=== PATIENT | male | born 1940 | race Caucasian/White ===

== ENCOUNTER 2020-09-17 00:58 | Observation (INO) ==
--- NOTE | 2020-09-17 02:22 | DR.COUGH ---
HPI Time Seen Time Seen by Provider: 09/17/20 02:21 PCP Primary Care Physician: DR.TERESA BAILEY HPI Comment HPI Comment: 80 yo cm w/ pmh systolic HF (ef 25), AICd placement, dementia presents w/ 3 week hx of worsening confusion / disorientation. Multiple falls over the past week, unwitness, ? head strike. Also notes non productive cough. + covid exposure to daughter who tested + 3 weeks ago. + nausea w/o vomiting, + loose stools. No focal numbness/ weakness, CP, SOB, vomiting, urinary sx's. Complaint Chief Complaint:: "CONFUSED X1 WEEK, FELL 4 TIMES TODAY, COUGH, SOB" COVID-19 Coronavirus risk:travel/contact w/high risk person: No Has patient experienced Coronavirus symptoms: Yes Coronavirus symptoms experienced: Coughing and Shortness of Breath Source History Provided: Family Member Mode of Arrival Mode of Arrival: Wheelchair Timing Onset of Chief Complaint: 09/10/20 PMH PMH Past Medical History: Yes Past Medical History: Dyslipidemia Past Medical History Comment: PM WITH DEFIB, SPINAL STIMULATOR, CABG Past Surgical History: Yes Surgical History: CABG/Valve Surgery Past Surgical History Comment: BACK SURGERY Family History History of Family Medical Conditions: Yes Family Medical History: Diabetes Mellitus, Heart Failure and Sudden Cardiac Social History Does patient currently use any type of tobacco product: No Type of Tobacco Use: None Travel Risk Coronavirus risk:travel/contact w/high risk person: No Has patient experienced Coronavirus symptoms: Yes Coronavirus symptoms experienced: Coughing and Shortness of Breath Infectious screening In the last 2 months have you had wt loss of >10#?: NO Have you had fever, night sweats or hemotysis?: No Have you traveled outside the country in the last 6 months?: No Isolation: Standard ROS Review of Systems Unable to Obtain Due To: Altered mental status PE Vitals Vitals: Temperature 36.6 C Pulse Rate 109 Respiratory Rate 22 Blood Pressure 92/65 O2 Sat by Pulse Oximetry 92 General Limitations: Altered Mental Status General Appearance: Alert and Other (a/o x 2) Head Head Exam: Normal Inspection Eyes Eye exam: Normal Appearance ENT ENT Exam: Normal Exam External Ear Exam: Normal External Inspection TM/Canal Exam: Bilateral: Normal Nose Exam: Normal Nose Exam Nasal Speculum Exam: Bilateral: Normal Mouth Exam: Normal Inspection Teeth Exam: Normal Inspection Throat Exam: Normal Inspection Neck Neck Exam: Normal Inspection Chest Chest Inspection: Normal Inspection Respiratory Respiratory Exam: Normal Lung Sounds Bilat Cardiovascular Cardiovascular Exam: Regular Rate and Normal Rhythm Abdominal Exam Abdominal Exam: Normal Inspection, Normal Bowel Sounds and Soft Extremities Extremities Exam: Normal Inspection Back Back Exam: Normal Inspection Neurologic Neurological Exam: Alert and CN II-XII Intact; negative Oriented X3 (disoriented to place) and Motor Sensory Deficit Psychiatric Psychiatric Exam: Normal Affect and Normal Mood Skin Skin Exam: Warm, Dry, Intact and Normal Color MDM Additional Information Additional Information Obtained From: Old Records and Family Differential Diagnosis Differential Diagnosis: Pneumonia, URI and Other (uti, cva) COURSE Treatment Treatment: 80 yo m w/ prev hx of dementia presents w/ AMS> CT head negative. Non focal neuro exam. Covid negative. No hypoxia. BMP w/ evidence of maurizio (baseline cre 1.9). IVF's given. UA pending. d/w Dr Parker whom agrees to admit. ROR Labs Reviewed Laboratory Results Reviewed?: Yes Result Diagrams: 09/17/20 02:38 09/17/20 02:38 Laboratory: WBC 12.4 X10^3/uL (3.6-10.0) H 09/17/20 02:38 RBC 4.59 X10^6/uL (4.7-6.0) L 09/17/20 02:38 Hgb 13.1 g/dL (13.5-18.0) L 09/17/20 02:38 Hct 39.8 % (42.0-54.0) L 09/17/20 02:38 MCV 86.6 fL (80.0-100.0) 09/17/20 02:38 MCH 28.6 pg (27.0-34.0) 09/17/20 02:38 MCHC 33.0 g/dL (33.0-35.0) 09/17/20 02:38 RDW 13.9 % (11.6-16.5) 09/17/20 02:38 Plt Count 219 X10^3/uL (150.0-450.0) 09/17/20 02:38 MPV 7.6 fL (7.4-11.0) 09/17/20 02:38 Neut % (Auto) 80.6 % (42.0-75.0) H 09/17/20 02:38 Lymph % (Auto) 12.2 % (21.0-51.0) L 09/17/20 02:38 [place] % (Auto) 6.6 % (0.0-13.0) 09/17/20 02:38 Eos % (Auto) 0.3 % (0.9-2.9) L 09/17/20 02:38 Baso % (Auto) 0.3 % (0.2-1.0) 09/17/20 02:38 Neut # (Auto) 10.0 x10^3/uL (2.2-4.8) H 09/17/20 02:38 Lymph # (Auto) 1.5 X10^3/uL (1.3-2.9) 09/17/20 02:38 [place] # (Auto) 0.8 x10^3/uL (0.3-0.8) 09/17/20 02:38 Eos # (Auto) 0.0 x10^3/uL (0.0-0.2) 09/17/20 02:38 Baso # (Auto) 0.0 X10^3/uL (0.0-0.1) 09/17/20 02:38 Absolute Nucleated RBC 0.0 /100WBC 09/17/20 02:38 Sodium 138 mmol/L (136-145) 09/17/20 02:38 Corrected Sodium 139 mmol/L (136-145) 09/17/20 02:38 Potassium 4.9 mmol/L (3.5-5.1) 09/17/20 02:38 Chloride 101 mmol/L (98-107) 09/17/20 02:38 Carbon Dioxide 24.0 mmol/L (21-32) 09/17/20 02:38 BUN 32 mg/dL (7-18) H 09/17/20 02:38 Creatinine 2.62 mg/dL (0.70-1.30) H 09/17/20 02:38 Est GFR (MDRD) Af Amer 31 (>60) L 09/17/20 02:38 Est GFR (MDRD) Non-Af 25 (>60) L 09/17/20 02:38 Glucose 146 mg/dL (65-99) H 09/17/20 02:38 Calcium 8.8 mg/dL (8.5-10.1) 09/17/20 02:38 Corrected Calcium TNP 09/17/20 02:38 Ferritin 176 ng/mL (26-388) 09/17/20 02:38 Total Bilirubin 1.00 mg/dL (0.2-1.0) 09/17/20 02:38 AST 47 Units/L (15-37) H 09/17/20 02:38 ALT 26 Units/L (12-78) 09/17/20 02:38 Alkaline Phosphatase 69 Units/L (46-116) 09/17/20 02:38 Lactate Dehydrogenase 385 Units/L (85-227) H 09/17/20 02:38 Troponin I 0.04 ng/mL (0-1.5) 09/17/20 02:38 Total Protein 6.6 g/dL (6.4-8.2) 09/17/20 02:38 Albumin 3.4 g/dL (3.4-5.0) 09/17/20 02:38 Globulin 3.2 g/dL (2.5-4.5) 09/17/20 02:38 Albumin/Globulin Ratio 1.1 Ratio (1.1-2.1) 09/17/20 02:38 SARS CoV-2 RNA Rapid MIO Negative (NEGATIVE) 09/17/20 04:12 EKG Rate: 98 Rhythm: Paced Block: IVCD Hypertrophy: LVH ST: Nonsp Opioid Opioid Risk Tool Age (Shaun box if 16-45): No History of Preadolescent Sexual Abuse: No Total: 0 Total Score Risk Category: Low Risk Copyright: Dhaval CORTEZ predicting aberrant behaviors Diagnosis Discharge Problem: MAURIZIO (acute kidney injury) AMS (altered mental status) Qualifiers: Altered mental status type: delirium Qualified Code(s): R41.0 - Disorientation, unspecified Instructions Forms: Patient Portal Social Distancing
[2020-09-17 02:49] LABS: BASOPHILS % (AUTO) 0.3 % (0.2-1.0); EOSINOPHILS % (AUTO) 0.3 % (0.9-2.9); HEMATOCRIT 39.8 % (42.0-54.0); HEMOGLOBIN 13.1 g/dL (13.5-18.0); LYMPHOCYTES # (AUTO) 1.5 X10^3/uL (1.3-2.9); LYMPHOCYTES % (AUTO) 12.2 % (21.0-51.0); MEAN CORPUSCULAR HEMOGLOBIN 28.6 pg (27.0-34.0); MEAN CORPUSCULAR VOLUME 86.6 fL (80.0-100.0); MEAN PLATELET VOLUME 7.6 fL (7.4-11.0); MONOCYTES # (AUTO) 0.8 x10^3/uL (0.3-0.8); MONOCYTES % (AUTO) 6.6 % (0.0-13.0); NEUTROPHILS % (AUTO) 80.6 % (42.0-75.0); PLATELET COUNT 219 X10^3/uL (150.0-450.0); RED BLOOD COUNT 4.59 X10^6/uL (4.7-6.0); RED CELL DISTRIBUTION WIDTH 13.9 % (11.6-16.5); WHITE BLOOD COUNT 12.4 X10^3/uL (3.6-10.0)
[2020-09-17 03:03] LABS: ALANINE AMINOTRANSFERASE 26 Units/L (12-78); ALBUMIN 3.4 g/dL (3.4-5.0); ALKALINE PHOSPHATASE 69 Units/L (46-116); ASPARTATE AMINO TRANSFERASE 47 Units/L (15-37); BLOOD UREA NITROGEN 32 mg/dL (7-18); CALCIUM 8.8 mg/dL (8.5-10.1); CHLORIDE 101 mmol/L (98-107); COR NA(FOR HYPERGLY) 139 mmol/L (136-145); CREATININE 2.62 mg/dL (0.70-1.30); LACTATE DEHYDROGENASE 385 Units/L (85-227); SODIUM 138 mmol/L (136-145); TOTAL PROTEIN 6.6 g/dL (6.4-8.2); TROPONIN I 0.04 ng/mL (0-1.5); eGFR NON BLACK RACES 25 (>60)
--- NOTE | 2020-09-17 03:52 | CT ---
History: weakness confusion coughing sob Relevant Clinical InformationExam :BRAIN W/O CONTechnique: Thin section axial ct images of the brain were obtained from the foramen magnum to the vertex without contrast. Sagittal and coronal reconstructions were also performed.Comparison: NoneFindings:The ventricles are within normal limits in size. No midline shift, mass effect or extra-axial fluid collections. No evidence of acute hemorrhage or acute macroinfarction. Mild cortical atrophy compatible with patient's age. Decreased attenuation in the periventricular and subcortical white matter consistent with microvascular ischemic white matter changes.The visualized paranasal sinuses and mastoids are unremarkable. The calvarium is intact.Impression:Mild cortical atrophy with microvascular ischemic white matter changes.No acute intracranial pathology.Electronically signed by: Julio César Cornelius (Sep 17, 2020 03:50:17)
--- NOTE | 2020-09-17 05:21 | RAD ---
HISTORYCough weaknessSTUDYAP chestCOMPARISONNoneFINDINGSHeart size upper normal, with pacemaker and sternal wires. The lungs are clear. There is suggestion of hiatal hernia. Retained metallic foreign fragments are projected over the periphery of the right midlung.IMPRESSIONNo acute disease. Upper normal heart size. Postsurgical and posttraumatic findings. Suspect hiatal hernia.Electronically signed by: JOSSY MOSS (Sep 17, 2020 05:19:57)
--- NOTE | 2020-09-17 05:35 | RAD ---
HISTORYright knee pain Relevant Clinical InformationSTUDYKNEE RIGHTCOMPARISONNoneFINDINGSNo evidence for acute cortical disruption or dislocation. Moderate degenerative osteoarthritic changes right knee with narrowing of the medial joint compartment. Chondrocalcinosis present. No joint effusion.IMPRESSIONModerate degenerative osteoarthritic changes involving the right knee with narrowing of the medial joint compartment.No acute bony abnormalityElectronically signed by: Julio César Cornelius (Sep 17, 2020 05:34:25)
[2020-09-17] MEDS ORDERED: NS 1000 ML 1,000 ML IV ONE (05:47)
[2020-09-17] MEDS ORDERED: NS 1000 ML 1,000 ML ONE (05:48)
[2020-09-17] MEDS: NS 1000 ML 1,000 ML IV SCH ×2 (07:30→15:20)
--- NOTE | 2020-09-17 13:24 | DR.H&P ---
H&P History & Physical for Day of: H&P Date: 09/17/20 Chief Complaint Chief Complaint: Confusion Weakness Allergies Allergies Allergy/AdvReac Type Severity Reaction Status Date / Time No Known Drug Allergies Allergy Verified 09/17/20 02:29 History of Present Illness History of Present Illness: Pt is a 80 year old male with past medical history of HFrEF(25%), AICD placement, Dementia presenting after having worsening confusion for the past 3 weeks. It was also reported that he was having frequent falls throughout the week. Labs/imaging: Wbc 12.4, Hgb 13.1, Plt 219, Na 138, K 4.9, Cr 2.62, Glucose 146, Troponin negative, COVID negative. CT head: Mild cortical atrophy with microvascular ischemic white matter changes. No acute intracranial pathology. CXR: No acute disease. Upper normal heart size. Postsurgical and posttraumatic findings. Suspect hiatal hernia. Right Knee XR: Moderate degenerative osteoarthritic changes involving the right knee with narr owing of the medial joint compartment. No acute bony abnormality. He was found to be dehydrated in the ED and started on IVF. Urinalysis has not yet been collected, will have nurse get sample for evaluation. He does have mild leukocytosis, will start on Rocephin after urine collected. Continue IVF for acute renal failure. Will continue to monitor and follow up labs/imaging in the morning. Past Medical History Past Medical History: Dementia, Dyslipidemia and Hypertension Past Surgical History Surgical History: CABG/Valve Surgery Family History Family Medical History: Diabetes Mellitus, Heart Failure and Sudden Cardiac Social History Does patient currently use any type of tobacco product: No Type of Tobacco Use: None Medications Home Medications: No Known Drug Allergies Allergy (Verified 09/17/20 02:29) CONTINUE taking the following medications buspirone 5 mg PO HS 09/17/20 [History] carvedilol [Coreg] 6.25 mg PO BID 09/17/20 [History] donepezil 10 mg PO DAILY 09/17/20 [History] furosemide 40 mg PO QAM 09/17/20 [History] gabapentin 300 mg PO BID 09/17/20 [History] levothyroxine 25 mcg PO DAILY 09/17/20 [History] losartan 25 mg PO DAILY 09/17/20 [History] memantine 10 mg PO BID 09/17/20 [History] montelukast 10 mg PO DAILY 09/17/20 [History] pantoprazole 40 mg PO BID 09/17/20 [History] simvastatin [Zocor] 20 mg PO QHS 09/17/20 [History] tamsulosin [Flomax] 0.4 mg PO QHS 09/17/20 [History] tramadol 50 mg PO TID PRN 09/17/20 [History] Labs Result Diagrams: 09/17/20 02:38 09/17/20 02:38 Labs: Laboratory WBC 12.4 X10^3/uL (3.6-10.0) H 09/17/20 02:38 RBC 4.59 X10^6/uL (4.7-6.0) L 09/17/20 02:38 Hgb 13.1 g/dL (13.5-18.0) L 09/17/20 02:38 Hct 39.8 % (42.0-54.0) L 09/17/20 02:38 MCV 86.6 fL (80.0-100.0) 09/17/20 02:38 MCH 28.6 pg (27.0-34.0) 09/17/20 02:38 MCHC 33.0 g/dL (33.0-35.0) 09/17/20 02:38 RDW 13.9 % (11.6-16.5) 09/17/20 02:38 Plt Count 219 X10^3/uL (150.0-450.0) 09/17/20 02:38 MPV 7.6 fL (7.4-11.0) 09/17/20 02:38 Neut % (Auto) 80.6 % (42.0-75.0) H 09/17/20 02:38 Lymph % (Auto) 12.2 % (21.0-51.0) L 09/17/20 02:38 [place] % (Auto) 6.6 % (0.0-13.0) 09/17/20 02:38 Eos % (Auto) 0.3 % (0.9-2.9) L 09/17/20 02:38 Baso % (Auto) 0.3 % (0.2-1.0) 09/17/20 02:38 Neut # (Auto) 10.0 x10^3/uL (2.2-4.8) H 09/17/20 02:38 Lymph # (Auto) 1.5 X10^3/uL (1.3-2.9) 09/17/20 02:38 [place] # (Auto) 0.8 x10^3/uL (0.3-0.8) 09/17/20 02:38 Eos # (Auto) 0.0 x10^3/uL (0.0-0.2) 09/17/20 02:38 Baso # (Auto) 0.0 X10^3/uL (0.0-0.1) 09/17/20 02:38 Absolute Nucleated RBC 0.0 /100WBC 09/17/20 02:38 Sodium 138 mmol/L (136-145) 09/17/20 02:38 Corrected Sodium 139 mmol/L (136-145) 09/17/20 02:38 Potassium 4.9 mmol/L (3.5-5.1) 09/17/20 02:38 Chloride 101 mmol/L (98-107) 09/17/20 02:38 Carbon Dioxide 24.0 mmol/L (21-32) 09/17/20 02:38 BUN 32 mg/dL (7-18) H 09/17/20 02:38 Creatinine 2.62 mg/dL (0.70-1.30) H 09/17/20 02:38 Est GFR (MDRD) Af Amer 31 (>60) L 09/17/20 02:38 Est GFR (MDRD) Non-Af 25 (>60) L 09/17/20 02:38 Glucose 146 mg/dL (65-99) H 09/17/20 02:38 Calcium 8.8 mg/dL (8.5-10.1) 09/17/20 02:38 Corrected Calcium TNP 09/17/20 02:38 Ferritin 176 ng/mL (26-388) 09/17/20 02:38 Total Bilirubin 1.00 mg/dL (0.2-1.0) 09/17/20 02:38 AST 47 Units/L (15-37) H 09/17/20 02:38 ALT 26 Units/L (12-78) 09/17/20 02:38 Alkaline Phosphatase 69 Units/L (46-116) 09/17/20 02:38 Lactate Dehydrogenase 385 Units/L (85-227) H 09/17/20 02:38 Troponin I 0.04 ng/mL (0-1.5) 09/17/20 02:38 Total Protein 6.6 g/dL (6.4-8.2) 09/17/20 02:38 Albumin 3.4 g/dL (3.4-5.0) 09/17/20 02:38 Globulin 3.2 g/dL (2.5-4.5) 09/17/20 02:38 Albumin/Globulin Ratio 1.1 Ratio (1.1-2.1) 09/17/20 02:38 SARS CoV-2 RNA Rapid MIO Negative (NEGATIVE) 09/17/20 04:12 Review of Systems Constitutional: Weakness Eyes: No Symptoms Reported ENT: No Symptoms Reported Respiratory: No Symptoms Reported Cardiovascular: No Symptoms Reported Gastrointestinal: No Symptoms Reported Genitourinary: No Symptoms Reported Musculoskeletal: No Symptoms Reported Skin: No Symptoms Reported Neurological: Confusion Physical Exam Vital Signs: Temperature 97.8 F Pulse Rate [Right Brachial] 84 Pulse Rate 109 Respiratory Rate 20 Blood Pressure [Right Arm] 152/64 Blood Pressure 92/65 O2 Sat by Pulse Oximetry 98 Oriented: Person Eyes: Normal Ear: Normal Nose: Normal Throat: Normal Respiratory: Clear Throughout Cardiovascular: Normal : Normal Auscultation: Bowel Sounds: Normal Palpation: Normal Tenderness: Normal Skin: Normal Musculoskeletal: Normal Psychiatric: Normal Mood Description: Calm and Appropriate Affect: Normal Speech Pattern: Clear and Appropriate Assessment/Plan (1) Acute renal failure: Status: Acute Plan: Due to dehydration. Continue IVF (2) AMS (altered mental status): Qualifiers: Altered mental status type: delirium Qualified Code(s): R41.0 - Disorientation, unspecified Status: Acute Plan: order UA. Review H&P Reviewed: Yes Patient was examined?: Yes
[2020-09-17] MEDS: ROCEPHIN VIAL 1 GRAM 1 G in NS 100 ML IV + SPIKE MINIBAG* 100 ML IV SCH (15:20)
[2020-09-17 19:42] LABS: BILIRUBIN,URINE NEGATIVE (NEGATIVE); BLOOD/HEMOGLOBIN,URINE NEGATIVE (NEGATIVE); GLUCOSE, URINE NEGATIVE (NEGATIVE); KETONES,URINE NEGATIVE (NEGATIVE); LEUKOCYTE ESTERASE ,URINE NEGATIVE (NEGATIVE); NITRITES,URINE NEGATIVE (NEGATIVE); PROTEIN,URINE NEGATIVE (NEGATIVE); UROBILINOGEN,URINE NORMAL (NORMAL)
[2020-09-17 19:43] LABS: APPEARANCE,URINE CLEAR (CLEAR); COLOR,URINE YELLOW (YELLOW)
[2020-09-18] MEDS: NS 1000 ML 1,000 ML IV SCH ×3 (00:12→19:19)
[2020-09-18 06:53] LABS: BASOPHILS % (AUTO) 0.4 % (0.2-1.0); EOSINOPHILS # (AUTO) 0.2 x10^3/uL (0.0-0.2); EOSINOPHILS % (AUTO) 3.2 % (0.9-2.9); HEMATOCRIT 31.4 % (42.0-54.0); HEMOGLOBIN 10.5 g/dL (13.5-18.0); LYMPHOCYTES # (AUTO) 1.5 X10^3/uL (1.3-2.9); MEAN CORPUSCULAR HEMOGLOBIN 29.4 pg (27.0-34.0); MEAN CORPUSCULAR HGB CONC 33.6 g/dL (33.0-35.0); MEAN CORPUSCULAR VOLUME 87.3 fL (80.0-100.0); MEAN PLATELET VOLUME 8.2 fL (7.4-11.0); MONOCYTES # (AUTO) 0.6 x10^3/uL (0.3-0.8); MONOCYTES % (AUTO) 8.3 % (0.0-13.0); NEUTROPHILS % (AUTO) 68.1 % (42.0-75.0); PLATELET COUNT 174 X10^3/uL (150.0-450.0); RED BLOOD COUNT 3.59 X10^6/uL (4.7-6.0); RED CELL DISTRIBUTION WIDTH 13.7 % (11.6-16.5); WHITE BLOOD COUNT 7.4 X10^3/uL (3.6-10.0)
[2020-09-18 07:02] LABS: ALANINE AMINOTRANSFERASE 25 Units/L (12-78); ALBUMIN 2.5 g/dL (3.4-5.0); ALKALINE PHOSPHATASE 46 Units/L (46-116); ASPARTATE AMINO TRANSFERASE 40 Units/L (15-37); BLOOD UREA NITROGEN 29 mg/dL (7-18); CALCIUM 8.2 mg/dL (8.5-10.1); CARBON DIOXIDE 23.5 mmol/L (21-32); CHLORIDE 111 mmol/L (98-107); COR CA(FOR HYPOALB) 9.4 mg/dL (8.5-10.1); CREATININE 2.23 mg/dL (0.70-1.30); SODIUM 143 mmol/L (136-145); TOTAL PROTEIN 5.2 g/dL (6.4-8.2); eGFR NON BLACK RACES 30 (>60)
[2020-09-18] MEDS: ROCEPHIN VIAL 1 GRAM 1 G in NS 100 ML IV + SPIKE MINIBAG* 100 ML IV SCH (08:26)
[2020-09-18 08:28] VITALS: BMI 28.6
--- NOTE | 2020-09-18 13:19 | PCM.PROG ---
Progress Note Progress Note for Day of Date of Exam: 09/18/20 Subjective Subjective: Pt is a 80 year old male with past medical history of HFrEF(25%), AICD placement, Dementia admitted for dehydration, cystitis, and altered mental status. This morning patient is resting in bed, no acute events overnight. Labs/imaging: Wbc 7.4, Hgb 10.5, Plt 174, Na 143, K 4.6, Cr 2.23, Glucose 95. COVID negative. Urinalysis was not consistent with infection, however could not be ruled out due to patient receiving antibiotics Rocephin before urine sample could be collected. His mild leukocytosis has improved with antibiotics. Continue IVF for acute renal failure. Will continue to monitor and follow up labs/imaging in the morning. Past Medical Family Social History Past Med/Fam/Surg Hx: No changes since H&P Allergies: Allergies No Known Drug Allergies Allergy (Verified 09/17/20 02:29) Review of Systems ROS: No change since H&P Vital Signs and I&O's Vital Signs: Temperature 97.8 F Pulse Rate [Right Brachial] 81 Pulse Rate 109 Respiratory Rate 18 Blood Pressure [Right Arm] 123/79 Blood Pressure 92/65 O2 Sat by Pulse Oximetry 95 Intake and Output: Intake & Output 09/15/20 09/16/20 09/17/20 09/18/20 23:59 23:59 23:59 23:59 Intake Total 1460 / 1460 1000 / 1000 Output Total 200 / 200 350 / 350 Balance 1260 / 1260 650 / 650 Physical Exam Oriented: Person Eyes: Normal Ear: Normal Nose: Normal Throat: Normal Respiratory: Normal Cardiovascular: Normal : Normal Auscultation: Bowel Sounds: Normal Tenderness: Normal Skin: Normal Musculoskeletal: Normal Psychiatric: Normal Mood Description: Calm and Appropriate Affect: Normal Speech Pattern: Clear and Appropriate Laboratory and Diagnostics Result Diagrams: 09/18/20 06:30 09/18/20 06:30 Labs: Laboratory WBC 7.4 X10^3/uL (3.6-10.0) 09/18/20 06:30 RBC 3.59 X10^6/uL (4.7-6.0) L 09/18/20 06:30 Hgb 10.5 g/dL (13.5-18.0) L D 09/18/20 06:30 Hct 31.4 % (42.0-54.0) L 09/18/20 06:30 MCV 87.3 fL (80.0-100.0) 09/18/20 06:30 MCH 29.4 pg (27.0-34.0) 09/18/20 06:30 MCHC 33.6 g/dL (33.0-35.0) 09/18/20 06:30 RDW 13.7 % (11.6-16.5) 09/18/20 06:30 Plt Count 174 X10^3/uL (150.0-450.0) 09/18/20 06:30 MPV 8.2 fL (7.4-11.0) 09/18/20 06:30 Neut % (Auto) 68.1 % (42.0-75.0) 09/18/20 06:30 Lymph % (Auto) 20.0 % (21.0-51.0) L 09/18/20 06:30 [place] % (Auto) 8.3 % (0.0-13.0) 09/18/20 06:30 Eos % (Auto) 3.2 % (0.9-2.9) H 09/18/20 06:30 Baso % (Auto) 0.4 % (0.2-1.0) 09/18/20 06:30 Neut # (Auto) 5.0 x10^3/uL (2.2-4.8) H 09/18/20 06:30 Lymph # (Auto) 1.5 X10^3/uL (1.3-2.9) 09/18/20 06:30 [place] # (Auto) 0.6 x10^3/uL (0.3-0.8) 09/18/20 06:30 Eos # (Auto) 0.2 x10^3/uL (0.0-0.2) 09/18/20 06:30 Baso # (Auto) 0.0 X10^3/uL (0.0-0.1) 09/18/20 06:30 Absolute Nucleated RBC 0.0 /100WBC 09/18/20 06:30 Sodium 143 mmol/L (136-145) 09/18/20 06:30 Corrected Sodium TNP 09/18/20 06:30 Potassium 4.6 mmol/L (3.5-5.1) 09/18/20 06:30 Chloride 111 mmol/L (98-107) H 09/18/20 06:30 Carbon Dioxide 23.5 mmol/L (21-32) 09/18/20 06:30 BUN 29 mg/dL (7-18) H 09/18/20 06:30 Creatinine 2.23 mg/dL (0.70-1.30) H 09/18/20 06:30 Est GFR (MDRD) Af Amer 37 (>60) L 09/18/20 06:30 Est GFR (MDRD) Non-Af 30 (>60) L 09/18/20 06:30 Glucose 95 mg/dL (65-99) 09/18/20 06:30 Calcium 8.2 mg/dL (8.5-10.1) L 09/18/20 06:30 Corrected Calcium 9.4 mg/dL (8.5-10.1) 09/18/20 06:30 Ferritin 176 ng/mL (26-388) 09/17/20 02:38 Total Bilirubin 0.60 mg/dL (0.2-1.0) 09/18/20 06:30 AST 40 Units/L (15-37) H 09/18/20 06:30 ALT 25 Units/L (12-78) 09/18/20 06:30 Alkaline Phosphatase 46 Units/L (46-116) 09/18/20 06:30 Lactate Dehydrogenase 385 Units/L (85-227) H 09/17/20 02:38 Troponin I 0.04 ng/mL (0-1.5) 09/17/20 02:38 Total Protein 5.2 g/dL (6.4-8.2) L 09/18/20 06:30 Albumin 2.5 g/dL (3.4-5.0) L 09/18/20 06:30 Globulin 2.7 g/dL (2.5-4.5) 09/18/20 06:30 Albumin/Globulin Ratio 0.9 Ratio (1.1-2.1) L 09/18/20 06:30 Specimen Type Clean catch urine 09/17/20 19:15 Urine Color Yellow (YELLOW) 09/17/20 19:15 Urine Appearance Clear (CLEAR) 09/17/20 19:15 Urine pH 6.0 (5.0 - 8.0) 09/17/20 19:15 Ur Specific [place] 1.020 (1.000-1.030) 09/17/20 19:15 Urine Protein Negative (NEGATIVE) 09/17/20 19:15 Urine Glucose (UA) Negative (NEGATIVE) 09/17/20 19:15 Urine Ketones Negative (NEGATIVE) 09/17/20 19:15 Urine Occult Blood Negative (NEGATIVE) 09/17/20 19:15 Urine Nitrite Negative (NEGATIVE) 09/17/20 19:15 Urine Bilirubin Negative (NEGATIVE) 09/17/20 19:15 Urine Urobilinogen Normal (NORMAL) 09/17/20 19:15 Ur Leukocyte Esterase Negative (NEGATIVE) 09/17/20 19:15 SARS CoV-2 RNA Rapid MIO Negative (NEGATIVE) 09/17/20 04:12 Plan (1) Acute renal failure: Status: Acute Plan: Due to dehydration. Continue IVF (2) AMS (altered mental status): Status: Acute Qualifiers: Altered mental status type: delirium Qualified Code(s): R41.0 - Disorientation, unspecified Plan: order UA. (3) Cystitis: Status: Acute Plan: continue Rocephin
[2020-09-19] MEDS: NS 1000 ML 1,000 ML IV SCH ×3 (00:51→14:28)
[2020-09-19 07:05] LABS: ALANINE AMINOTRANSFERASE 32 Units/L (12-78); ALBUMIN 2.8 g/dL (3.4-5.0); ALKALINE PHOSPHATASE 48 Units/L (46-116); ASPARTATE AMINO TRANSFERASE 41 Units/L (15-37); BASOPHILS % (AUTO) 0.3 % (0.2-1.0); BLOOD UREA NITROGEN 21 mg/dL (7-18); CALCIUM 8.6 mg/dL (8.5-10.1); CARBON DIOXIDE 21.8 mmol/L (21-32); CHLORIDE 109 mmol/L (98-107); COR CA(FOR HYPOALB) 9.6 mg/dL (8.5-10.1); EOSINOPHILS # (AUTO) 0.3 x10^3/uL (0.0-0.2); EOSINOPHILS % (AUTO) 2.8 % (0.9-2.9); HEMATOCRIT 34.2 % (42.0-54.0); HEMOGLOBIN 11.3 g/dL (13.5-18.0); LYMPHOCYTES # (AUTO) 1.6 X10^3/uL (1.3-2.9); LYMPHOCYTES % (AUTO) 17.1 % (21.0-51.0); MEAN CORPUSCULAR HGB CONC 33.2 g/dL (33.0-35.0); MEAN CORPUSCULAR VOLUME 87.5 fL (80.0-100.0); MEAN PLATELET VOLUME 8.2 fL (7.4-11.0); MONOCYTES # (AUTO) 0.7 x10^3/uL (0.3-0.8); MONOCYTES % (AUTO) 7.1 % (0.0-13.0); NEUTROPHILS # (AUTO) 6.6 x10^3/uL (2.2-4.8); NEUTROPHILS % (AUTO) 72.7 % (42.0-75.0); PLATELET COUNT 200 X10^3/uL (150.0-450.0); RED BLOOD COUNT 3.91 X10^6/uL (4.7-6.0); SODIUM 142 mmol/L (136-145); TOTAL PROTEIN 5.8 g/dL (6.4-8.2); WHITE BLOOD COUNT 9.1 X10^3/uL (3.6-10.0); eGFR NON BLACK RACES 39 (>60)
[2020-09-19] MEDS ORDERED: ZOFRAN TAB 4 MG SL ONE (08:52)
[2020-09-19] MEDS: ROCEPHIN VIAL 1 GRAM 1 G in NS 100 ML IV + SPIKE MINIBAG* 100 ML IV SCH (10:45)
[2020-09-19] MEDS ORDERED: LOVENOX INJ 30 MG SYR SC SCH (11:00)
[2020-09-19] MEDS ORDERED: ARICEPT TAB 10 MG PO SCH (14:00)
[2020-09-19] MEDS ORDERED: SINGULAIR TAB 10 MG PO SCH (14:00)
[2020-09-19] MEDS ORDERED: PROTONIX TAB 40 MG PO SCH (14:00)
[2020-09-19] MEDS ORDERED: COREG TAB 6.25 MG PO SCH (14:00)
--- NOTE | 2020-09-19 14:57 | RAD ---
PROCEDURE: Chest x-ray one-view.HISTORY: Altered mental status and acute renal insufficiency.TECHNIQUE: AP portable view done at 1:24 p.m..COMPARISON: 09/17/2020.TECHNICAL QUALITY: Satisfactory .FINDINGS:Normal size heart with pacemaker on the left and previous sternotomy.Mediastinum and hilar regions show no significant abnormality.Normal central vascularity.No pulmonary consolidation, masses, pleural fluid, or pneumothorax. Unchanged metallic subcentimeter foreign body projected over right lung base.No acute bony abnormality.IMPRESSION:No active cardiopulmonary disease.Electronically signed by: Ryley Boudreaux (Sep 19, 2020 14:56:18)
[2020-09-19 16:57] VITALS: BP 138/68
[2020-09-19] MEDS ORDERED: BUSPAR PO SCH (21:00)
[2020-09-19] MEDS ORDERED: ZOCOR TAB 20 MG PO SCH (21:00)
[2020-09-19] MEDS ORDERED: NAMENDA TAB 10 MG PO SCH (21:00)
[2020-09-20] MEDS ORDERED: COZAAR PO SCH (09:00)
[2020-09-20] MEDS ORDERED: SYNTHROID 25 mcg TAB PO SCH (09:00)
[2020-09-20] MEDS ORDERED: LASIX PO SCH (09:00)
== END 2020-09-19 18:35 | disposition home or self-care (01) ==
LOC: ER 00:59 → MED/SURG 00:59
PROVIDERS: ADMIT Internal Medicine; ATTEND Internal Medicine
DX: E86.0 Dehydration; E78.2 Mixed hyperlipidemia; R29.6 Repeated falls; R06.02 Shortness of breath; N18.9 Chronic kidney disease, unspecified; N17.8 Other acute kidney failure; R26.89 Other abnormalities of gait and mobility; I12.9 Hypertensive chronic kidney disease with stage 1 through stage 4 chronic kidney disease, or unspecified chronic kidney disease; Z20.828 Contact with and (suspected) exposure to other viral communicable diseases; N30.00 Acute cystitis without hematuria; R41.0 Disorientation, unspecified; R94.4 Abnormal results of kidney function studies; K44.9 Diaphragmatic hernia without obstruction or gangrene; R94.31 Abnormal electrocardiogram [ECG] [EKG]